=== PATIENT | male | born 2000 | race Native Hawaiian/Other Pacific Islander ===

== ENCOUNTER 2019-11-04 07:55 | Emergency (ER) | payer OTHER ==
[~2019-11-04] VITALS: Ht 170.2 cm; Wt 65.8 kg
[2019-11-04 08:00] VITALS: TEMP 97.7
[2019-11-04 08:46] VITALS: BP 136/88
== END 2019-11-04 08:46 | disposition home or self-care (01) ==
LOC: ED 07:55
DX: K08.89 Other specified disorders of teeth and supporting structures (principal); F17.210 Nicotine dependence, cigarettes, uncomplicated
CPT/HCPCS: 96372; 99282; J1885

== ENCOUNTER 2021-01-17 20:23 | Emergency (ER) | payer OTHER ==
[~2021-01-17] VITALS: Ht 172.7 cm; Wt 74.8 kg
[2021-01-17 20:58] LABS: PLATELET COUNT 326 K/uL (142-355)
[2021-01-17 21:03] LABS: POTASSIUM 3.5 mmol/L (3.6-5.2)
[2021-01-18 00:40] VITALS: BP 134/87; TEMP 98.9
== END 2021-01-18 00:40 | disposition home or self-care (01) ==
LOC: ED 20:23
PROVIDERS: Hospitalist
DX: N17.8 Other acute kidney failure (principal); E86.0 Dehydration; K81.0 Acute cholecystitis; Z53.29 Procedure and treatment not carried out because of patient's decision for other reasons
CPT/HCPCS: 36415; 80053; 80320; 82150; 83605; 83690; 85027; 87040; 96360; 96365; 96375; 99284; J1885; J2405; J2543

== ENCOUNTER 2021-07-20 18:14 | Emergency (ER) | payer OTHER ==
[~2021-07-20] VITALS: Ht 172.7 cm; Wt 65.8 kg
[2021-07-20 19:25] VITALS: BP 126/63; TEMP 98.7
== END 2021-07-20 19:25 | disposition home or self-care (01) ==
LOC: ED 18:14
DX: K04.7 Periapical abscess without sinus (principal); R68.84 Jaw pain; H65.192 Other acute nonsuppurative otitis media, left ear; F17.210 Nicotine dependence, cigarettes, uncomplicated
CPT/HCPCS: 96372; 99283; J0696; J1885

== ENCOUNTER 2022-08-06 05:32 | Emergency (ER) | payer OTHER ==
[~2022-08-06] VITALS: Ht 172.7 cm; Wt 72.6 kg
[2022-08-06 05:33] VITALS: BP 167/71; TEMP 98.2
== END 2022-08-06 06:15 | disposition left against medical advice (07) ==
LOC: ED 05:32
DX: Z53.21 Procedure and treatment not carried out due to patient leaving prior to being seen by health care provider (principal)
CPT/HCPCS: 99281

== ENCOUNTER 2022-08-09 22:32 | Emergency (ER) | payer OTHER ==
[~2022-08-09] VITALS: Ht 172.7 cm; Wt 72.6 kg
[2022-08-09 22:55] VITALS: BP 108/60; TEMP 98.6
== END 2022-08-09 22:55 | disposition home or self-care (01) ==
LOC: ED 22:32
DX: L03.114 Cellulitis of left upper limb (principal)
CPT/HCPCS: 99282

== ENCOUNTER 2022-12-13 13:33 | Emergency (ER) | payer OTHER ==
[~2022-12-13] VITALS: Ht 175.3 cm; Wt 72.6 kg
[2022-12-13 15:35] LABS: PLATELET COUNT 226 K/uL (142-355)
[2022-12-13 15:45] LABS: POTASSIUM 3.7 mmol/L (3.6-5.2)
[2022-12-13 17:10] VITALS: BP 131/81; TEMP 98.2
== END 2022-12-13 17:10 | disposition home or self-care (01) ==
LOC: ED 13:33
PROVIDERS: Family Medicine
DX: E86.0 Dehydration (principal)
CPT/HCPCS: 80048; 85027; 96360; 99284